=== PATIENT | male | born 1980 | race African-American/Black ===

== ENCOUNTER 2019-08-08 15:27 | Emergency (ER) | payer MEDICARE, OTHER ==
[2019-08-08 16:38] LABS: Amphetamine Screen,Urine Not Detected (NotDetected); Barbiturate Screen,Urine Not Detected (NotDetected); Benzodiazepines Screen,Urine Not Detected (NotDetected); Cocaine Screen,Urine Not Detected (NotDetected); Methadone Screen, Urine Not Detected (NotDetected); Opiate Screen,Urine Not Detected (NotDetected); Oxycodone Screen, Urine Not Detected (NotDetected); Phencyclidine Screen,Urine Not Detected (NotDetected); Tricyclic Antidepressant,Urine Not Detected (NotDetected); Urn Cannabinoid Scrn Not Detected (NotDetected)
--- NOTE | 2019-08-08 19:14 | ED ---
Psych HPI - General Chief Complaint: Psychiatric Symptoms Stated Complaint: mental health Time Seen by Provider: 08/08/19 15:55 Source: patient, family Mode of arrival: ambulatory - History of Present Illness Initial Comments: 39yo male presents emergency department for valerio. Father states patient has history of schizophrenia and this has been ongoing since age 14 he states it comes in waves that sometimes he needs hospitalization. Father states that he has been having delusional thoughts and has been paranoid. He states is very typical time patient needs hospitalization. He is patient's guardian. He denies patient having any other unusual behaviors or complaints. Denies patient having suicidal or homicidal thoughts patient denies any suicidal or homicidal thoughts. Patient upon arrival has flight of ideas, speech. - Related Data Home Medications Medication Instructions Recorded Confirmed Divalproex Sodium [Depakote] 500 mg PO BID 08/08/19 08/08/19 QUEtiapine FUMARATE 200 mg PO HS 08/08/19 08/08/19 clonazePAM 1 mg PO BID 08/08/19 08/08/19 risperiDONE [RisperDAL] 2 mg PO HS 08/08/19 08/08/19 Allergies Allergy/AdvReac Type Severity Reaction Status Date / Time No Known Allergies Allergy Verified 08/08/19 15:44 Review of Systems ROS Statement: Those systems with pertinent positive or pertinent negative responses have been documented in the HPI. ROS Other: All systems not noted in ROS Statement are negative. Past Medical History Past Medical History: No Reported History History of Any Multi-Drug Resistant Organisms: None Reported Past Surgical History: No Surgical Hx Reported Past Psychological History: Anxiety, Depression, Schizophrenia Smoking Status: Current every day smoker Past Alcohol Use History: None Reported Past Drug Use History: None Reported General Exam - General Exam Comments Initial Comments: General: The patient is awake and alert Eye: +3 mm pupils are equal, round and reactive to light, extra-ocular movements are intact. No nystagmus. There is normal conjunctiva bilaterally. No signs of icterus. Ears, nose, mouth and throat: There are moist mucous membranes and no oral lesions. Neck: The neck is supple, there is no tenderness or JVD. Cardiovascular: There is a regular rate and rhythm. No murmur, rub or gallop is appreciated. Respiratory: Lungs are clear to auscultation, respirations are non-labored, breath sounds are equal. No wheezes, stridor, rales, or rhonchi. Gastrointestinal: Soft, non-distended, non-tender abdomen without masses or organomegaly noted. There is no rebound or guarding present. Musculoskeletal: Normal ROM, no tenderness. Strength 5/5. Sensation intact. Radial pulses equal bilaterally 2+. Neurological: CN II-XII intact grossly, There are no obvious motor or sensory de ficits. Coordination appears grossly intact. Speech is normal. Skin: Skin is warm and dry and no rashes or lesions are noted. Psychiatric: Cooperative, darting eye, rapid pressured speech, flight of ideas Limitations: no limitations Course Vital Signs 08/08/19 08/08/19 15:40 23:19 Temperature 98.0 F 98.2 F Pulse Rate 95 85 Respiratory 20 18 Rate Blood Pressure 147/90 149/83 O2 Sat by Pulse 100 100 Oximetry Medical Decision Making - Medical Decision Making 39-year-old male with history of schizophrenia presenting for evaluation. Father states he was recently hospitalized. He states he was fine after discharge however now has had increasing paranoid thoughts rapid speech delusions. These are present on examination. Otherwise there is no abnormal physical examination findings. Patient is cooperative. Reseting comfortably in bed, evaluated by EPS who recommended transfer to outside facility for inpatient treatment after speaking with psychiatrist - Lab Data Lab Results 08/08/19 Range/Units 16:09 Urine Opiates Screen Not Detected (NotDetected) Ur Oxycodone Screen Not Detected (NotDetected) Urine Methadone Screen Not Detected (NotDetected) Ur Propoxyphene Screen Not Detected (NotDetected) Ur Barbiturates Screen Not Detected (NotDetected) U Tricyclic Antidepress Not Detected (NotDetected) Ur Phencyclidine Scrn Not Detected (NotDetected) Ur Amphetamines Screen Not Detected (NotDetected) U Methamphetamines Scrn Not Detected (NotDetected) U Benzodiazepines Scrn Not Detected (NotDetected) Urine Cocaine Screen Not Detected (NotDetected) U Marijuana (THC) Screen Not Detected (NotDetected) Disposition Clinical Impression: Schizophrenia, Paranoia (psychosis) Disposition: TRANSFER TO PSYCH HOSP/UNIT Condition: Stable Is patient prescribed a controlled substance at d/c from ED?: No Referrals: Nonstaff,Physician [Primary Care Provider] - 1-2 days Time of Disposition: 23:24 - Out of Hospital Transfer - Req. Specs Out of Hospital Transfer - Requested Specifics: Psychiatric Non-ICU ([facility])
[2019-08-08 23:19] VITALS: BP 149/83; PULSE 85; RESP 18; TEMP 98.2
== END 2019-08-08 23:18 ==
LOC: EEVIPCON 15:27 → EC 15:27
DX: F22 Delusional disorders (principal); F20.9 Schizophrenia, unspecified; F17.200 Nicotine dependence, unspecified, uncomplicated; F41.9 Anxiety disorder, unspecified; F32.9 Major depressive disorder, single episode, unspecified; Z79.899 Other long term (current) drug therapy
CPT/HCPCS: 80306; 82075; 99285